=== PATIENT | male | born 1940 | race Caucasian/White ===

== ENCOUNTER 2017-08-09 03:18 | Emergency (ER) | payer OTHER, BC ==
[2017-08-09] MEDS ORDERED: NS 1,000 ML IV ONE (03:29)
--- NOTE | 2017-08-09 03:36 | CPEKG ---
Heart Rate: 70 RR Interval: 857 QRSD Interval: 84 QT Interval: 428 QTC Interval: 462 QRS Beeson: -22 T Wave Beeson: 71 EKG Severity - ABNORMAL ECG - EKG Impression: BORDERLINE LEFT AXIS DEVIATION Electronically Signed By: Niru Zuleta 09-Aug-2017 07:12:33
[2017-08-09 03:58] LABS: PLATELET COUNT 193 10^3/uL (150-400)
--- NOTE | 2017-08-09 05:03 | EDPHY ---
H & P Stated Complaint: SOB started tonight Time Seen by Provider: 08/09/17 03:29 HPI/ROS: HPI The patient presents with shortness of breath which began on his plane ride here from [place] 2 days ago. He since has had ongoing shortness of breath that has gotten worse. He feels as if he cannot catch his breath. He has had occasional coughing and gasping for air. He noticed tonight that he could not lay flat to sleep because of his shortness of breath and woke his family and they have brought him into the emergency department. He also reports lightheadedness which he experiences when he goes from sitting to standing. He has not had any chest pain, leg swelling. He has no history of smoking or pulmonary embolism. He has last been to altitude about 20 years ago and did not have any problems.. REVIEW OF SYSTEMS Constitutional: No fever, no chills. Eyes: No discharge. ENT: No sore throat. Cardiovascular: No chest pain, no palpitations. Respiratory: No cough, no shortness of breath. Gastrointestinal: No abdominal pain, no vomiting. Genitourinary: No hematuria. Musculoskeletal: No back pain. Skin: No rashes. Neurological: No headache. PMHx: CAD status post cardiac stent, hypertension, hyperlipidemia Soc Hx: Nonsmoker PHYSICAL General Appearance: Alert, no distress Eyes: Pupils equal and round no pallor or injection ENT, Mouth: Mucous membranes moist Respiratory: There are no retractions, lungs are clear to auscultation Cardiovascular: Regular rate and rhythm Gastrointestinal: Abdomen is soft and non-tender, no masses, bowel sounds normal Neurological: A&O, moves all extremities Skin: Warm and dry, no rashes Musculoskeletal: Neck is supple non tender Extremities: symmetrical, full range of motion Psychiatric: Patient is oriented X 3, there is no agitation Source: Patient Exam Limitations: No limitations - Personal History Current Tetanus/Diphtheria Vaccine: Yes Current Tetanus Diphtheria and Acellular Pertussis (TDAP): Yes - Medical/Surgical History Hx Asthma: No Hx Chronic Respiratory Disease: No Hx Diabetes: No Hx Cardiac Disease: Yes Hx Renal Disease: No Hx Cirrhosis: No Hx Alcoholism: No Hx HIV/AIDS: No Hx Splenectomy or Spleen Trauma: No Other PMH: stent and tear duct surgery - Social History Smoking Status: Never smoked Constitutional: Initial Vital Signs Temperature (C) 36.6 C 08/09/17 03:21 Heart Rate 66 08/09/17 03:21 Respiratory Rate 18 08/09/17 03:21 Blood Pressure 176/94 H 08/09/17 03:21 O2 Sat (%) 90 L 08/09/17 03:21 O2 Delivery Mode Nasal Cannula O2 (L/minute) 2 Allergies/Adverse Reactions: No Known Allergies Allergy (Unverified 08/09/17 03:23) Home Medications: Medication Instructions Recorded Amlodipine Besylate 08/09/17 Aspirin 08/09/17 Atorvastatin Calcium 08/09/17 Clopidogrel 08/09/17 Hydrocodone-Acetamin 10-300 mg 08/09/17 Lisinopril 08/09/17 Lovastatin 08/09/17 Naproxen 08/09/17 Propranolol HCl 08/09/17 Medical Decision Making - Diagnostics EKG Interpretation: EKG: Complete interpretation has been separately recorded in the [facility] archive. Summary impression: Normal sinus rhythm Imaging Results: Chest x-ray two views shows elevated right hemidiaphragm, mild cardiomegaly, no infiltrate, interpreted by me, radiology interpretation is pending Imaging: Discussed imaging studies w/ artificial fly tier Radiologist Differential Diagnosis: This is a 76-year-old man from [place] with history of CAD, hypertension, hyperlipidemia, obesity who presents with shortness of breath since arriving on an airplane. His symptoms have been constant though are worse at night when he is lying down to sleep and that is what has brought him in now. He does not have any chest pain. Differential diagnosis includes PE, pneumonia, COPD exacerbation, CHF exacerbation. In the emergency department, patient was placed on supplemental oxygen with improvement in his symptoms. Labs were checked and were relatively unremarkable. BNP was slightly elevated though given his obesity could be falsely low. Even though his D-dimer was negative, I am not convinced that he does not have a pulmonary embolism and I have ordered a CT scan of his chest. CT scan of chest demonstrated no pulmonary embolism, he does have atelectasis. I have taken him off of oxygen and he is still de satting to 88-89% on room air. I suspect this is due to atelectasis and altitude as well as his habitus. He will require discharged with oxygen. I have ordered home oxygen for him at this time. We are awaiting oxygen delivery. The patient will be held in the emergency department until this time. - Data Points Laboratory Results: Laboratory Results 08/09/17 03:45 08/09/17 03:45 08/09/17 08/09/17 08/09/17 04:17 03:50 03:45 WBC RBC Hgb Hct MCV MCH MCHC RDW Plt Count MPV Neut % (Auto) Lymph % (Auto) Bryan % (Auto) Eos % (Auto) Baso % (Auto) Nucleat RBC Rel Count Absolute Neuts (auto) Absolute Lymphs (auto) Absolute Monos (auto) Absolute Eos (auto) Absolute Basos (auto) Absolute Nucleated RBC Immature Gran % Immature Gran # D-Dimer 0.41 ug/mLFEU ug/mLFEU (0.00-0.50) Sodium 141 mEq/L mEq/L (135-145) Potassium 4.7 mEq/L mEq/L (3.3-5.0) Chloride 100 mEq/L mEq/L (97-110) Carbon Dioxide 29 mEq/l mEq/l (22-31) Anion Gap 12 mEq/L mEq/L (8-16) BUN 23 mg/dL mg/dL (7-23) Creatinine 1.0 mg/dL mg/dL (0.7-1.3) Estimated GFR > 60 Glucose 103 mg/dL H mg/dL (70-100) Calcium 8.8 mg/dL mg/dL (8.5-10.4) POC Troponin I 0.01 ng/mL ng/mL (0.00-0.08) NT-Pro-B Natriuret Pep 148 pg/mL H pg/mL (0-125) Specimen Hemolysis 197 08/09/17 08/09/17 03:45 03:45 WBC 9.33 10^3/uL 10^3/uL (3.80-9.50) RBC 5.53 10^6/uL 10^6/uL (4.40-6.38) Hgb 15.4 g/dL g/dL (13.7-17.5) Hct 47.9 % % (40.0-51.0) MCV 86.6 fL fL (81.5-99.8) MCH 27.8 pg L pg (27.9-34.1) MCHC 32.2 g/dL L g/dL (32.4-36.7) RDW 15.0 % % (11.5-15.2) Plt Count 193 10^3/uL 10^3/uL (150-400) MPV 10.9 fL fL (8.7-11.7) Neut % (Auto) 68.1 % % (39.3-74.2) Lymph % (Auto) 19.8 % % (15.0-45.0) Bryan % (Auto) 8.1 % % (4.5-13.0) Eos % (Auto) 3.1 % % (0.6-7.6) Baso % (Auto) 0.5 % % (0.3-1.7) Nucleat RBC Rel Count 0.0 % % (0.0-0.2) Absolute Neuts (auto) 6.34 10^3/uL 10^3/uL (1.70-6.50) Absolute Lymphs (auto) 1.85 10^3/uL 10^3/uL (1.00-3.00) Absolute Monos (auto) 0.76 10^3/uL 10^3/uL (0.30-0.80) Absolute Eos (auto) 0.29 10^3/uL 10^3/uL (0.03-0.40) Absolute Basos (auto) 0.05 10^3/uL 10^3/uL (0.02-0.10) Absolute Nucleated RBC 0.00 10^3/uL 10^3/uL (0-0.01) Immature Gran % 0.4 % % (0.0-1.1) Immature Gran # 0.04 10^3/uL 10^3/uL (0.00-0.10) D-Dimer REJ Sodium Potassium Chloride Carbon Dioxide Anion Gap BUN Creatinine Estimated GFR Glucose Calcium POC Troponin I NT-Pro-B Natriuret Pep Specimen Hemolysis Medications Given: Discontinued Medications Sodium Chloride (Ns) 1,000 mls @ 0 mls/hr IV ONCE ONE; Wide Open PRN Reason: Protocol Stop: 08/09/17 03:30 Last Admin: 08/09/17 03:35 Dose: 1,000 mls Point of Care Test Results: Chemistry 08/09/17 03:50 POC Troponin I 0.01 ng/mL ng/mL (0.00-0.08) Departure - Departure Disposition: Home, Routine, Self-Care Clinical Impression: Hypoxia, Atelectasis Condition: Good Instructions: Using Oxygen at Home (ED), Hypoxia (ED) Referrals: NONE *PRIMARY CARE P,. [Primary Care Provider] - As per Instructions
[2017-08-09] MEDS ORDERED: IOPAMIDOL (ISOVUE 370) 100 ML BTL IV ONE (05:11)
--- NOTE | 2017-08-09 06:19 | PDHOMEO2F ---
Home Oxygen Face to Face Home Orders: I certify that a physician or a nurse practitioner or physician's printer assistant has had a [id number] encounter with this patient on the date of this order due to the diagnosis listed, which relates to the primary reason the patient requires home oxygen. Alternative treatments have been tried, or considered, and deemed ineffective. It is anticipated that supplemental oxygen will result in improvement with treatment. Home oxygen qualifying diagnosis: hypoxia SpO2 on room air (%): 88 Frequency of home oxygen needed: continuous Home oxygen liters per minute: 2l Home oxygen delivery device: nasal cannula Concentrator: No E-tanks for mobility and back up: No If ordering portable O2, is the patient mobile in the home?: Yes I certify that, based on these findings, the home oxygen is medically necessary for this patient for the following length of time. Length of time home oxygen needed: 1 week Home Oxygen Comment: visiting until 08/11
[2017-08-09 11:26] VITALS: BP 141/89
== END 2017-08-09 11:22 | disposition home or self-care (01) ==
DX: R09.02 Hypoxemia (principal); J98.11 Atelectasis; E86.9 Volume depletion, unspecified; I25.10 Atherosclerotic heart disease of native coronary artery without angina pectoris; I10 Essential (primary) hypertension; Z79.82 Long term (current) use of aspirin; Z95.5 Presence of coronary angioplasty implant and graft
CPT/HCPCS: 71046; 71275; 93005; 96360; 99285; Q9967; 84484-PO